=== PATIENT | male | born 1950 | race African-American/Black ===

== ENCOUNTER 2020-02-22 06:55 | Day surgery (SDC) | payer MEDICARE, OTHER ==
--- NOTE | 2020-02-18 11:39 | Opthalmology H&P ---
Ophthalmology H&P H&P Chief Complaint: decreased vision in left eye HPI Vision Affects Ability to: read, focus/use eyes together, manage personal affairs Past Ocular History: other - Exotropia OS HPI Narrative Blurry vision Exam Visual Acuity: OD 20/60 OS Hand Motion Tension: OD 10 OS 10 Eye Exam: normal OU: external exam, palpebral fissure-width, marginal reflex distance, levator function, corneas, anterior chambers, fundus exam; findings: lens - Pseudo OD, NS/CC Cataract OS Assessment/Plan Treatment Plan: cataract extraction w/ lens implant Goals of Treatment: improvement of vision, enhance quality of life Attestation Attestation The risks and benefits of the surgery as well as alternative procedures were explained to the patient in detail. Abad Soria MD Feb 18, 2020 11:39
--- NOTE | 2020-02-18 11:40 | Pre-Procedure Note/Attestation ---
Pre-Procedure Note/Attestation Complete Prior to Procedure Planned Procedure: left Procedure Narrative: Cataract extraction with IOL implant left eye Indications for Procedure Pre-Operative Diagnosis: Nuclear sclerotic/ cortical cataract left eye Attestation I attest that I discussed the nature of the procedure; its benefits; risks and complications; and alternatives (and the risks and benefits of such alternatives), prior to the procedure, with the patient (or the patient's legal used equipment sales representative). I attest that, if there was a reasonable possibility of needing a blood transfusion, the patient (or the patient's legal used equipment sales representative) was given the [facility] standardized written summary, pursuant to the Antonio Patrick Blood Safety Act ([place] Health and Safety Code # 1645, as amended). I attest that I re-evaluated the patient just prior to the surgery and that t here has been no change in the patient's H&P, except as documented below: Abad Soria MD Feb 18, 2020 11:40
[~2020-02-22] VITALS: Ht 177.8 cm; Wt 72.6 kg
[2020-02-22] VITALS (9 sets, daily range): BP systolic 125–156; BP diastolic 76–101
[~2020-02-22 06:55] MED LIST: ASPIRIN81 MG ORAL; cholesterol med PO
[2020-02-22] MEDS ORDERED: Tetracaine 0.5% Opth 4ml Soln LEFT EYE ONE (07:00)
[2020-02-22] MEDS ORDERED: Proparacaine 0.5% Opth Soln 15ml LEFT EYE ONE (07:00)
[2020-02-22] MEDS ORDERED: Maxitrol Opth Oint 3.5gm ONE (07:00)
[2020-02-22] MEDS ORDERED: Pilocarpine 1% Opth 15ml Soln ONE (07:00)
[2020-02-22] MEDS ORDERED: Akten 3.5% 1ml Btl LEFT EYE ONE (07:00)
[2020-02-22] MEDS ORDERED: prednisoLONE acetate 1% Opth Susp 1ml ONE (07:00)
[2020-02-22] MEDS: Tropicamide 1% Opth 15ml Soln LEFT EYE SCH ×3 (07:28→07:44)
[2020-02-22] MEDS: Diclofenac Sod 0.1% Op Soln LEFT EYE SCH ×4 (07:29→07:50)
[2020-02-22] MEDS: Phenylephrine 10% Opth Soln 5ml LEFT EYE SCH ×3 (07:29→07:44)
[2020-02-22] MEDS: Tobramycin Op Soln 0.3% 5ml LEFT EYE SCH ×3 (07:30→07:45)
[2020-02-22] MEDS ORDERED: Midazolam 2mg/2ml Inj ONE (09:15)
[2020-02-22] MEDS ORDERED: fentaNYL 100 mcg/2 mL IV ONE (09:15)
--- NOTE | 2020-02-22 09:19 | Anethesia Preoperative Eval ---
Anesthesia Pre-op PMH/ROS General Date of Evaluation: Feb 22, 2020 Time of Evaluation: 09:19 Anesthesiologist: Kaylyn ASA Score: ASA 3 Mallampati Score Class I : Soft palate, uvula, fauces, pillars visible Class II: Soft palate, uvula, fauces visible Class III: Soft palate, base of uvula visible Class IV: Only hard plate visible Mallampati Classification: Class II Surgeon: Estella Diagnosis: L eye cataract Surgical Procedure: Cataract extraction Anesthesia History: none Social History: smoking - h/o Family History: no anesthesia problems Allergies: Coded Allergies: No Known Allergies (Unverified , 02/18/20) Medications: see eMAR Patient NPO?: Yes Past Medical History Cardiovascular: Reports: HTN; Denies: CAD, OR, valve dz, arrhythmia, other Pulmonary: Reports: COPD; Denies: asthma, RONI, other Gastrointestinal/Genitourinary: Reports: GERD; Denies: CRI, ESRD, other Neurologic/Psychiatric: Reports: CVA, other - seizers; Denies: dementia, depression/anxiety, TIA Endocrine: Denies: DM, hypothyroidism, steroids, other HEENT: Reports: cataract (L), cataract (R); Denies: glaucoma, [place] (L[place] (R), other Hematology/Immune: Reports: anemia - mild; Denies: DVT, bleeding disorder, other Musculoskeletal/Integumentary: Denies: OA, RA, DJD, DDD, edema, other PMH Narrative: as above PSxH Narrative: R eye cataract Anesthesia Pre-op Phys. Exam Physician Exam Last Vital Signs Date Time Temp Pulse Resp B/P (MAP) Pulse Ox O2 Delivery O2 Flow Rate FiO2 02/22/20 07:31 Room Air 02/22/20 07:23 97.3 93 18 148/90 96 Constitutional: NAD Neurologic: CN 2-12 intact Cardiovascular: RRR, no M/R/G Respiratory: CTA Gastrointestinal: S/NT/ND Airway Exam Mallampati Score: Class II MO: limited Neck: stiff ROM: limited Teeth: missing Dentures: no upper, no lower Anesthesia Pre-op A/P Labs see chart Studies Pre-op Studies: EKG - SR Risk Assessment & Plan Assessment: ASA 3 Plan: MAC Status Change Before Surgery: No Boris Patiño MD Feb 22, 2020 09:19
[2020-02-22] MEDS ORDERED: Sodium Hyaluronate 10 mg/ml 0.85ml ONE ×2 (09:36→10:12)
[2020-02-22] MEDS ORDERED: BSS 15ml BTL ONE (09:36)
[2020-02-22] MEDS ORDERED: EPINEPHrine 1mg/1ml Amp ONE (09:36)
[2020-02-22] MEDS ORDERED: BSS 500ml btl ONE (09:36)
[2020-02-22] MEDS ORDERED: Povidone-Iodine 5% opth solution ONE (09:36)
[2020-02-22] MEDS ORDERED: Sterile Water Irrig 1000ml IRRIG ONE (10:00)
[2020-02-22] MEDS ORDERED: NS Irrig 1000ml ONE (10:00)
[2020-02-22] MEDS ORDERED: LR 1000ml ONE (10:00)
[2020-02-22] MEDS ORDERED: fentaNYL 100 mcg/2 mL IV PRN (10:15)
[2020-02-22] MEDS ORDERED: LR 1000ml 1,000 ML IVLG SCH (10:15)
--- NOTE | 2020-02-22 10:29 | Immediate Post-Op Evaluation ---
Immediate Post-Op Evalulation Immediate Post-Op Evalulation Procedure: L eyeb cataract extraction with IOL Date of Evaluation: Feb 22, 2020 Time of Evaluation: 10:28 IV Fluids: 400 Blood Products: none Estimated Blood Loss: none Urinary Output: none Blood Pressure Systolic: 141 Blood Pressure Diastolic: 78 Pulse Rate: 68 Respiratory Rate: 20 O2 Sat by Pulse Oximetry: 99 Temperature (Fahrenheit): 97.6 Pain Score (1-10): 1 Nausea: No Vomiting: No Complications none Patient Status: awake, patent, none Hydration Status: adequate Boris Patiño MD Feb 22, 2020 10:29
--- NOTE | 2020-02-22 11:29 | 48 Hour Post Anesthesia Eval ---
Post Anesthesia Evaluation Procedure: L eye cataract extraction with IOL Date of Evaluation: Feb 22, 2020 Time of Evaluation: 11:27 Blood Pressure Systolic: 125 0: 76 Pulse Rate: 68 Respiratory Rate: 20 Temperature (Fahrenheit): 97.6 O2 Sat by Pulse Oximetry: 98 Airway: patent Nausea: No Vomiting: No Pain Intensity: 1 Hydration Status: adequate Cardiopulmonary Status: stable Mental Status/LOC: patient returned to baseline Follow-up Care/Observations: n/a Post-Anesthesia Complications: none Follow-up care needed: ready to discharge Boris Patiño MD Feb 22, 2020 11:29
--- NOTE | 2020-02-25 10:22 | Brief Operative Note ---
Immediate Post Operative Note Operative Note Chief Complaint: Blurry vision Pre-op Diagnosis: Nuclear sclerotic/ cortical cataract left eye Procedure: Cataract extraction with IOL implant left eye Post-op Diagnosis: Pseudo OS Findings: consistent w/pre-op dx studies Surgeon: Abad Sorai MD Anesthesiologist: Boris Patiño MD Anesthesia: MAC Specimen: none Complications: none Condition: stable Fluids: LR Estimated Blood Loss: none Drains: none Implant(s) used?: Yes - IOL-OS Abad Soria MD Feb 25, 2020 10:22
--- NOTE | 2020-02-25 10:26 | Operative Note - PDOC ---
Operative Note Operative Note Date of Operation/Procedure: Feb 25, 2020 Chief Complaint: Blurry vision Pre-op Diagnosis: Nuclear sclerotic/ cortical cataract left eye Procedure: Cataract extraction with IOL implant left eye Post-op Diagnosis: Pseudo OS Operative Findings: consistent w/pre-op dx studies Surgeon: Abad Soria MD Anesthesiologist: Boris Patiño MD Anesthesia: MAC Specimen: none Complications: none Condition: stable Fluids: LR Estimated Blood Loss: none Drains: none Implant(s) used?: Yes - IOL-OS Indications for Procedure Nuclear sclerotic/ cortical cataract left eye Description of Procedure This patient has been complaining of a visually significant cataract in the left eye with the best corrected visual acuity of hand motion. The patient complains of difficulties with glare in performing activities of daily living and wants to manage personal affairs with comfort and accuracy and see well enough to move with safety at home and outdoors independently. The risks, benefits and alternatives of the procedure were discussed with the patient in the office prior to scheduling surgery. All questions from the patient were answered after the surgical procedure was explained in detail. The risks of the procedure as explained to the patient include, but are not limited to, pain, infection, bleeding, loss of vision, retinal detachment, need for further surgery, loss of lens nucleus, double vision, etc. Alternative procedures were discussed which include, to do nothing or seek a second opinion. Informed consent for this procedure was obtained from the patient. The patient was referred to a primary care physician for a cardiopulmonary clearance prior to surgery, after proper evaluation was done patient was properly scheduled for outpatient surgery. The patient was brought to the operating room where the anesthesiologist established I.V. lines and cardiac monitoring leads. Mild intravenous sedation was administered. The patient was then prepared with a 5% solution of povidone-iodine to the conjunctival fornix and lashes, and a 5% solution of povidone-iodine to the lids and periorbital skin. The patient was then draped in the usual sterile fashion. A lid speculum was then placed in the operative eye. A keratome blade was then used to create a biplanar incision into the anterior chamber. Viscoelastics was then instilled into the anterior chamber. A 3-mm single pass clear corneal incision was made just anterior to the vascular arcade of the temporal limbus using a keratome. Anterior capsulorrhexis was created. The nucleus was hydrodissected and hydrodelineated, and was freely movable in the capsular bag. The nucleus was then phacoemulsified using a quadrantic [id number] technique. Following the deep groove formation, the lens was split bimanually and the resultant quadrants and cortical material was removed under vacuum burst-mode phacoemulsification. Peripheral cortex was removed with the irrigation and aspiration handpiece. The capsular bag was expanded with viscoelastic. The intraocular lens was then inspected for right power and size and thought to be satisfactory. The implant was inspected under the microscope and found to be free of defects. The implant was inserted into the cartridge system under viscoelastic and placed in the capsular bag. The trailing haptic was positioned with the cartridge system. Viscoelastics was removed from the anterior chamber using the irrigation and aspiration unit. The corneal wound was then tested for leaks and none were found. The lid speculum were then removed. Sponge and needle counts were correct. An eye patch and shield were placed over the operative eye. The patient was taken to the recovery room in stable condition. There were no complications. The patient tolerated the procedure well. The patient was then transferred to the ambulatory surgery unit in stable and satisfactory condition, was given detailed written instructions and asked to follow up in the office the next day. Abad Soria MD Feb 25, 2020 10:26
== END 2020-02-22 11:00 | disposition home or self-care (01) ==
LOC: SUR 06:55
DX: H25.12 Age-related nuclear cataract, left eye (principal); H25.012 Cortical age-related cataract, left eye; I10 Essential (primary) hypertension; J44.9 Chronic obstructive pulmonary disease, unspecified; K21.9 Gastro-esophageal reflux disease without esophagitis; Z86.73 Personal history of transient ischemic attack (TIA), and cerebral infarction without residual deficits; D64.9 Anemia, unspecified; Z79.82 Long term (current) use of aspirin; G40.909 Epilepsy, unspecified, not intractable, without status epilepticus; G20 Parkinson's disease; E78.5 Hyperlipidemia, unspecified; G89.29 Other chronic pain; R26.9 Unspecified abnormalities of gait and mobility; N39.46 Mixed incontinence
CPT/HCPCS: 66984; 94003; J0171; J1100; J2250; J2704; J3010; J3370; J7120; U0004; V2632; 94150